=== PATIENT | male | born 1980 | race African-American/Black ===

== ENCOUNTER 2025-03-30 19:22 | Emergency (ER) | payer SELFPAY ==
[2025-03-30 19:55] VITALS: BP 106/70; PULSE 95; RESP 15; O2SAT 97
[2025-03-30] MEDS: IBUPROFEN 600MG TABLET PO ONE (20:30)
[2025-03-30] MEDS: LIDOCAINE HCL 1% 20ML VIAL INFIL ONE (20:31)
[2025-03-30] MEDS: ACETAMINOPHEN 500MG TABLET PO ONE (20:31)
[2025-03-30] MEDS: LIDOCAINE 5% PATCH TOP SCH (22:29)
== END 2025-03-30 22:36 | disposition home or self-care (01) ==
LOC: ER 19:22
DX: S01.91XA Laceration without foreign body of unspecified part of head, initial encounter (principal); W18.30XA Fall on same level, unspecified, initial encounter; Y93.55 Activity, bike riding; Y92.89 Other specified places as the place of occurrence of the external cause; Y99.8 Other external cause status
CPT/HCPCS: 70450; 12002; 99284; J2003; Z7610

== ENCOUNTER 2025-04-06 07:53 | Emergency (ER) | payer SELFPAY ==
[~2025-04-06] VITALS: Ht 182.9 cm; Wt 91.0 kg
[2025-04-06 07:59] VITALS: O2SAT 99
[2025-04-06 08:57] VITALS: BP 128/80; PULSE 68; RESP 16; TEMP 36.8; O2SAT 100
== END 2025-04-06 08:58 | disposition home or self-care (01) ==
LOC: ER 07:53
DX: S01.112D Laceration without foreign body of left eyelid and periocular area, subsequent encounter (principal); X58.XXXD Exposure to other specified factors, subsequent encounter
CPT/HCPCS: 99282